=== PATIENT | male | born 1990 | race American Indian/Alaskan Native ===

== ENCOUNTER 2018-03-10 12:02 | Emergency (ER) | payer BC, OTHER ==
[2018-03-10] MEDS ORDERED: NACL 0.9% 1000 ML 1,000 ML IV ONE (12:11)
[2018-03-10 12:37] LABS: Basophils % (Auto) 0.3 % (0.0-1.8); Eosinophils # (Auto) 0.2 K/mm3 (0.0-0.4); Eosinophils % (Auto) 2.1 % (0.0-4.3); Hematocrit 42.3 % (35.5-45.6); Hemoglobin 14.5 gm/dl (11.8-15.2); Lymphocytes # (Auto) 1.9 K/mm3 (1.2-5.4); Lymphocytes % (Auto) 22.2 % (13.4-35.0); Mean Corpuscular HGB Conc 34 % (32-34); Mean Corpuscular Volume 90 fl (84-94); Monocytes # (Auto) 0.8 K/mm3 (0.0-0.8); Monocytes % (Auto) 8.8 % (0.0-7.3); Platelet Count 282 K/mm3 (140-440); Red Blood Count 4.69 M/mm3 (3.65-5.03); Red Cell Distribution Width 12.8 % (13.2-15.2)
[2018-03-10 12:54] LABS: Alanine Aminotransferase 18 units/L (7-56); BUN/Creatinine Ratio 11; Blood Urea Nitrogen 8 mg/dL (9-20); Calcium 9.3 mg/dL (8.4-10.2); Hemolysis Index 13
[2018-03-10] MEDS ORDERED: PROTONIX PO ONE (14:37)
--- NOTE | 2018-03-10 14:39 | Emergency Department Report ---
ED Abdominal Pain HPI - General Chief Complaint: Abdominal Pain Stated Complaint: GASTRO PAIN Source: patient Mode of arrival: Ambulatory Limitations: No Limitations - History of Present Illness Initial Comments: This is a 27-year-old -[place] male who presents with nausea and vomiting and abdominal pain for several months which is increased over the past 2 weeks. Patient states he recently moved here from [place] and started a new job where is able to drink soda for free. He have a unsteady living situation and been eating greasy foods. He was seen at [facility] in October and given Protonix and tramadol for chronic back pain and gastritis. He was referr ed to Gastrology and have an appointment on 04/04/2018 in [place]. Patient states pain is increased after drinking and were eating and epigastric region a crampy sensation. He reports bowel movements improve symptoms. If feels like gas. He denies chest pain, shortness of breath, or diarrhea. MD Complaint: abdominal pain Onset/Timin -: month(s) Location: diffuse Radiation: back Migration to: no migration Severity: moderate Severity scale (0 -10): 5 Quality: cramping Consistency: intermittent Improves With: bowel movement Worsens With: eating Associated Symptoms: nausea, vomiting. denies: diarrhea, fever, chills, constipation, dysuria, hematemesis, hematochezia, melena, hematuria, anorexia, syncope Treatments Prior to Arrival: prescription analgesics, antacids - Related Data Previous Rx's Medication Instructions Recorded Last Taken Type Ondansetron [Zofran Odt] 4 mg PO Q8HR PRN #10 tab.rapdis 03/10/18 Unknown Rx Pantoprazole [Protonix] 40 mg PO QDAY #30 tablet 03/10/18 Unknown Rx Allergies Allergy/AdvReac Type Severity Reaction Status Date / Time No Known Allergies Allergy Verified 03/10/18 14:10 ED Review of Systems ROS: Stated complaint: GASTRO PAIN Other details as noted in HPI Constitutional: denies: chills, fever Respiratory: denies: cough, shortness of breath, wheezing Cardiovascular: denies: chest pain, palpitations Gastrointestinal: abdominal pain, nausea, vomiting. denies: diarrhea Genitourinary: denies: urgency, dysuria Skin: denies: rash, lesions Neurological: denies: headache, weakness, paresthesias Psychiatric: denies: anxiety, depression ED Past Medical Hx - Past Medical History Previous Medical History?: No - Surgical History Past Surgical History?: No - Social History Smoking Status: Current Every Day Smoker Substance Use Type: Marijuana - Medications Home Medications: Home Medications Medication Instructions Recorded Confirmed Last Taken Type Ondansetron [Zofran Odt] 4 mg PO Q8HR PRN #10 tab.rapdis 03/10/18 Unknown Rx Pantoprazole [Protonix] 40 mg PO QDAY #30 tablet 03/10/18 Unknown Rx ED Physical Exam - General Limitations: No Limitations General appearance: alert, in no apparent distress - Respiratory Respiratory exam: Present: normal lung sounds bilaterally. Absent: respiratory distress - Cardiovascular Cardiovascular Exam: Present: regular rate, normal rhythm. Absent: systolic murmur, diastolic murmur, rubs, gallop - GI/Abdominal GI/Abdominal exam: Present: soft, tenderness (right lower quadrant tenderness), normal bowel sounds. Absent: distended, guarding, rebound, rigid, organomegaly, mass - Back Exam Back exam: Absent: CVA tenderness (R), CVA tenderness (L) - Neurological Exam Neurological exam: Present: alert, oriented X3 - Psychiatric Psychiatric exam: Present: normal affect, normal mood - Skin Skin exam: Present: warm, dry, intact, normal color. Absent: rash ED Course Vital Signs 03/10/18 12:08 Temperature 98.1 F Pulse Rate 79 Respiratory 16 Rate Blood Pressure 122/66 O2 Sat by Pulse 98 Oximetry ED Medical Decision Making - Lab Data Result diagrams: 03/10/18 12:20 03/10/18 12:15 Lab Results 03/10/18 03/10/18 03/10/18 Range/Units 12:15 12:15 12:20 WBC 8.5 (4.5-11.0) K/mm3 RBC 4.69 (3.65-5.03) M/mm3 Hgb 14.5 (11.8-15.2) gm/dl Hct 42.3 (35.5-45.6) % MCV 90 (84-94) fl MCH 31 (28-32) pg MCHC 34 (32-34) % RDW 12.8 L (13.2-15.2) % Plt Count 282 (140-440) K/mm3 Lymph % (Auto) 22.2 (13.4-35.0) % Citrus % (Auto) 8.8 H (0.0-7.3) % Eos % (Auto) 2.1 (0.0-4.3) % Baso % (Auto) 0.3 (0.0-1.8) % Lymph # 1.9 (1.2-5.4) K/mm3 Citrus # 0.8 (0.0-0.8) K/mm3 Eos # 0.2 (0.0-0.4) K/mm3 Baso # 0.0 (0.0-0.1) K/mm3 Seg Neutrophils % 66.6 (40.0-70.0) % Seg Neutrophils # 5.7 (1.8-7.7) K/mm3 Sodium 138 (137-145) mmol/L Potassium 4.0 (3.6-5.0) mmol/L Chloride 97.6 L (98-107) mmol/L Carbon Dioxide 29 (22-30) mmol/L Anion Gap 15 mmol/L BUN 8 L (9-20) mg/dL Creatinine 0.7 L (0.8-1.5) mg/dL Estimated GFR > 60 ml/min BUN/Creatinine Ratio 11 % Glucose 142 H (75-100) mg/dL Calcium 9.3 (8.4-10.2) mg/dL Total Bilirubin 0.60 (0.1-1.2) mg/dL AST 18 (5-40) units/L ALT 18 (7-56) units/L Alkaline Phosphatase 78 (35-129) units/L Total Protein 7.3 (6.3-8.2) g/dL Albumin 4.0 (3.9-5) g/dL Albumin/Globulin Ratio 1.2 % Lipase 46 (13-60) units/L Urine Color (Yellow) Urine Turbidity (Clear) Urine pH (5.0-7.0) Ur Specific [place] (1.003-1.030) Urine Protein (Negative) mg/dL Urine Glucose (UA) (Negative) mg/dL Urine Ketones (Negative) mg/dL Urine Blood (Negative) Urine Nitrite (Negative) Urine Bilirubin (Negative) Urine Urobilinogen (<2.0) mg/dL Ur Leukocyte Esterase (Negative) Urine WBC (Auto) (0.0-6.0) /HPF Urine RBC (Auto) (0.0-6.0) /HPF Urine Mucus /HPF 03/10/18 Range/Units 14:38 WBC (4.5-11.0) K/mm3 RBC (3.65-5.03) M/mm3 Hgb (11.8-15.2) gm/dl Hct (35.5-45.6) % MCV (84-94) fl MCH (28-32) pg MCHC (32-34) % RDW (13.2-15.2) % Plt Count (140-440) K/mm3 Lymph % (Auto) (13.4-35.0) % Citrus % (Auto) (0.0-7.3) % Eos % (Auto) (0.0-4.3) % Baso % (Auto) (0.0-1.8) % Lymph # (1.2-5.4) K/mm3 Citrus # (0.0-0.8) K/mm3 Eos # (0.0-0.4) K/mm3 Baso # (0.0-0.1) K/mm3 Seg Neutrophils % (40.0-70.0) % Seg Neutrophils # (1.8-7.7) K/mm3 Sodium (137-145) mmol/L Potassium (3.6-5.0) mmol/L Chloride (98-107) mmol/L Carbon Dioxide (22-30) mmol/L Anion Gap mmol/L BUN (9-20) mg/dL Creatinine (0.8-1.5) mg/dL Estimated GFR ml/min BUN/Creatinine Ratio % Glucose (75-100) mg/dL Calcium (8.4-10.2) mg/dL Total Bilirubin (0.1-1.2) mg/dL AST (5-40) units/L ALT (7-56) units/L Alkaline Phosphatase (35-129) units/L Total Protein (6.3-8.2) g/dL Albumin (3.9-5) g/dL Albumin/Globulin Ratio % Lipase (13-60) units/L Urine Color Yellow (Yellow) Urine Turbidity Clear (Clear) Urine pH 7.0 (5.0-7.0) Ur Specific [place] 1.010 (1.003-1.030) Urine Protein <15 mg/dl (Negative) mg/dL Urine Glucose (UA) Neg (Negative) mg/dL Urine Ketones Neg (Negative) mg/dL Urine Blood Neg (Negative) Urine Nitrite Neg (Negative) Urine Bilirubin Neg (Negative) Urine Urobilinogen 4.0 (<2.0) mg/dL Ur Leukocyte Esterase Neg (Negative) Urine WBC (Auto) 1.0 (0.0-6.0) /HPF Urine RBC (Auto) 2.0 (0.0-6.0) /HPF Urine Mucus Few /HPF - Radiology Data Radiology results: report reviewed FINAL REPORT EXAM: CT ABDOMEN PELVIS WO CON HISTORY: RLQ tenderness TECHNIQUE: Axial helical imaging through the abdomen and pelvis with sagittal and coronal reformatted images obtained. Comparison: None FINDINGS: Visualization detail in portions of the abdomen and pelvis is limited by lack of contrast this patient with a paucity of intra-abdominal fat. The lung bases are without infiltrate, pneumothorax or pleural fluid collection. The heart appears to be normal size. The liver, spleen, pancreas, kidneys and adrenal glands are unremarkable on this study without contrast. The gallbladder is moderately distended and unremarkable. The bowel is normal caliber. There is a [id number]-[id number] amount of stool throughout the colon. There are prominent mesenteric lymph nodes. Evaluation is limited by the lack of IV contrast. The largest appears to measure approximately 14 millimeters in the maximal axial dimension. The appendix is not definitively visualized. There is a small amount of free fluid in the pelvis. There is no evidence of pneumoperitoneum. The abdominal aorta is normal caliber. Urinary bladder is decompressed which limits evaluation. The prostate gland and seminal vesicles are unremarkable. The bony structures are unremarkable. IMPRESSION: 1. Visualization detail in portions of the abdomen and pelvis is limited by lack of contrast this patient with a paucity of intra-abdominal fat. 2. The appendix is not visualized. Appendicitis cannot be excluded with this study. 3. Prominent mesenteric lymph nodes. These are nonspecific in appearance. Though these may be inflammatory in nature other etiologies, to include lymphoproliferative disorder, cannot entirely be excluded. 4. Small amount of free fluid in the pelvis of unclear etiology. CT abdomen and pelvis with GI and IV contrast would be helpful for further evaluation. - Medical Decision Making This is a 27 y.o. male that presents with nausea and epigastric pain for several months that is increased over the past week. Patient is stable and was examined by me. Vitals stable. Obtained CMP, CBC, lipase, & UA. All unremarkable. 1. Visualization detail in portions of the abdomen and pelvis is limited by lack of contrast this patient with a paucity of intra-abdominal fat. 2. The appendix is not visualized. Appendicitis cannot be excluded with this study. 3. Prominent mesenteric lymph nodes. These are nonspecific in appearance. Though these may be inflammatory in nature other etiologies, to include lymphoproliferative disorder, cannot entirely be excluded. 4. Small amount of free fluid in the p jac of unclear etiology. CT abdomen and pelvis with GI and IV contrast would be helpful for further evaluation. Given Protonix 40 mg po once in ER. Plan to start zofran and Protonix for gastritis. Instructed to keep appointment with online trader in Radiologist or call Gastrologist for referral. Have repeat CT with contrast. Discussed plan with patient and agreed to plan. No further questions noted by the patient. Discharged home in stable condition. Follow up with PCP in 2-3 days. Critical care attestation.: If time is entered above; I have spent that time in minutes in the direct care of this critically ill patient, excluding procedure time. ED Disposition Clinical Impression: Nausea alone Abdominal pain Qualifiers: Abdominal location: epigastric Qualified Code(s): R10.13 - Epigastric pain Gastritis Qualifiers: Gastritis type: superficial Chronicity: acute Gastritis bleeding: without bleeding Qualified Code(s): K29.00 - Acute gastritis without bleeding Disposition: DC-01 TO HOME OR SELFCARE Is pt being admited?: No Does the pt Need Aspirin: No Condition: Stable Instructions: Gastritis (ED) Additional Instructions: Frequent hand washing is important to reduce spread. Prompt disinfection of contaminated surfaces with household chlorine bleach-base d materials planner and washing of soiled clothing and bedding should be advised. If food or water is thought to be contaminated, it should be avoided. Increase fluid intake. Drinks high in sugars such as carbonated soft drinks, fruit juice, and highly sugared liquids should be avoided. Follow-up with a online trader have repeat CT with contrast and further evaluation. Prescriptions: Ondansetron [Zofran Odt] 4 mg PO Q8HR PRN #10 tab.rapdis PRN Reason: Nausea Pantoprazole [Protonix] 40 mg PO QDAY #30 tablet Referrals: TERRA HARRISON [Other] - 3-5 Days [facility] [Provider Group] - 3-5 Days Forms: Work/School Release Form(ED) Time of Disposition: 18:10
[2018-03-10 14:54] LABS: Bilirubin,Urine NEG (Negative); Blood,Urine NEG (Negative); Color,Urine Yellow (Yellow); Mucus,Urine FEW /HPF; Protein,Urine <15 mg/dL mg/dL (Negative)
--- NOTE | 2018-03-10 17:55 | Cat Scan Report ---
FINAL REPORT EXAM: CT ABDOMEN PELVIS WO CON HISTORY: RLQ tenderness TECHNIQUE: Axial helical imaging through the abdomen and pelvis with sagittal and coronal reformatte d images obtained. Comparison: None FINDINGS: Visualization detail in portions of the abdomen and pelvis is limited by lack of contrast this patien t with a paucity of intra-abdominal fat. The lung bases are without infiltrate, pneumothorax or pleural fluid collection. The heart appears to be normal size. The liver, spleen, pancreas, kidneys and adrenal glands are unremarkable on this study without contra st. The gallbladder is moderately distended and unremarkable. The bowel is normal caliber. There is a vdze-sl-mkovoiwg amount of stool throughout the colon. There are prominent mesenteric lymph nodes. Evaluation is limited by the lack of IV contrast. The lar gest appears to measure approximately 14 millimeters in the maximal axial dimension. The appendix is not definitively visualized. There is a small amount of free fluid in the pelvis. There is no evidence of pneumoperitoneum. The abdominal aorta is normal caliber. Urinary bladder is decompressed which limits evaluation. The prostate gland and seminal vesicles are unremarkable. The bony structures are unremarkable. IMPRESSION: 1. Visualization detail in portions of the abdomen and pelvis is limited by lack of contrast this pat ient with a paucity of intra-abdominal fat. 2. The appendix is not visualized. Appendicitis cannot be excluded with this study. 3. Prominent mesenteric lymph nodes. These are nonspecific in appearance. Though these may be inflamm atory in nature other etiologies, to include lymphoproliferative disorder, cannot entirely be exclude d. 4. Small amount of free fluid in the pelvis of unclear etiology. CT abdomen and pelvis with GI and IV contrast would be helpful for further evaluation.
[2018-03-10 18:50] VITALS: BP 121/61
== END 2018-03-10 18:49 | disposition home or self-care (01) ==
LOC: ED 12:02
DX: K29.00 Acute gastritis without bleeding (principal); F17.200 Nicotine dependence, unspecified, uncomplicated
CPT/HCPCS: 36415; 74176; 80053; 81001; 83690; 85025